=== PATIENT | female | born 1970 | race Caucasian/White ===

== ENCOUNTER 2019-05-07 06:32 | Inpatient (IN) | payer OTHER ==
[2019-05-06 13:09] LABS: BASOPHIL % 0.5 % (0-2); PLATELET COUNT 302 x10^3mcL (130-400); RED CELL DISTRIBUTION WIDTH 13.6 % (11.5-14.5)
[2019-05-06 13:17] LABS: ALBUMIN 3.7 g/dL (3.4-5.0); BILIRUBIN TOTAL 0.4 mg/dL (0.20-1.00); CALCIUM 9.1 mg/dL (8.5-10.1); CARBON DIOXIDE 30.1 mmol/L (21-32); CREATININE SERUM 1.5 mg/dL (0.6-1.0); POTASSIUM SERUM 4.5 mmol/L (3.5-5.1); TOTAL PROTEIN, SERUM 7.7 g/dL (6.4-8.2)
[~2019-05-07] VITALS: Ht 172.7 cm; Wt 111.6 kg
[2019-05-07 06:47] VITALS: BP 100/50
[2019-05-07] MEDS ORDERED: LEVOTHYROXIN0.025 M2 PO (07:13)
[2019-05-07] MEDS ORDERED: SENNA LAX8.6 MG PO (07:13)
[2019-05-07] MEDS ORDERED: MOBIC15 MG PO (07:13)
[2019-05-07] MEDS ORDERED: BENAZEPRIL HYDR40 M1 PO (07:13)
[2019-05-07] MEDS ORDERED: BACLOFEN20 MG PO (07:13)
[2019-05-07] MEDS ORDERED: DITROPAN XL10 MG PO (07:14)
[2019-05-07] MEDS ORDERED: TRAZODONE50 M1 PO (07:14)
--- NOTE | 2019-05-07 12:12 | NUR ---
RECEIVED PATIENT FROM OR NURSE JACOBSON AT THIS TIME. PATIENT RESTING COMFORTABLY IN BED. NO APPARENT DISTRESS OR DISCOMFORT NOTED. A/O X4 AND ABLE TO MAKE NEEDS KNOWN. 2L NC IN PLACE FOR COMFORT. PULSES PALPABLE. NO EDEMA NOTED. PATIENT DENIES SHORTNESS OF BREATH OR CHEST PAIN/PRESSURE. BOWEL SOUNDS ACTIVE X4. PATIENT DENIES ABD PAIN, NAUSEA, AND VOMITING AT THIS TIME. PATIENT HAS A ANN CATHETER IN PLACE DRAINING TO GRAVITY YELLOW URINE. X1 RIGHT HIP INCISION FROM RIGHT HIP REPLACEMENT WITH SUTURES, DERMABOND, AND MEPILEX IN PLACE. PATIENT HAS ERYTHEMA NOTED TO RIGHT SIDE ABD FOLD WITH HYDRAGUARD IN PLACE. PATIENT DENIES PAIN/DISCOMFORT AT THIS TIME. IV TO RAC INFUSING NS @ 80ML/HR. ALL QUESTIONS AND CONCERNS ADDRESSED. ALL NEEDS ATTENDED TO. WILL CONTINUE TO MONITOR
[2019-05-07 12:47] VITALS: BP 101/50
--- NOTE | 2019-05-07 13:45 | NUR ---
PATIENT SITTING UP IN BED EATING LUNCH AT THIS TIME. PATIENT TOLERATING DIET WELL. NO APPARENT DISTRESS OR DISCOMFORT NOTED. PATIENT DENIES PAIN/DISCOMFORT AT THIS TIME. ALL NEEDS ATTENDED TO. WILL CONTINUE TO MONITOR
--- NOTE | 2019-05-07 17:19 | NUR ---
SPOKE TO DR WHITTEN AT THIS TIME REGARDING PATIENT PAIN MEDICINE AT THIS TIME. PATIENT STATES SHE TAKES PERCOCET INSTEAD OF NORCO. PER DR WHITTEN OK TO INPUT TELEPHONE ORDER FOR PERCOCET 5/325 2 TABLETS Q6H PRN. TELEPHONE ORDER READ BACK, CONFIRMED AND FOLLOWED THROUGH
[2019-05-07 17:26] VITALS: BP 108/51
--- NOTE | 2019-05-07 17:37 | NUR ---
PATIENT C/O RIGHT HIP PAIN AT SURGICAL SITE. PATIENT MEDICATED WITH PERCOCET PO. PATIENT TOLERATED WELL. NO APPARENT ADVERSE EFFECTS NOTED. ALL NEEDS ATTENDED TO. WILL CONTINUE TO MONITOR
--- NOTE | 2019-05-07 17:42 | NUR ---
PATIENT STATES SHE TAKES TRAZADONE 100MG AT BED TIME. SPOKE TO DR WHITTEN AT THIS TIME REGARDING HOME MEDICATION. PER DR WHITTEN, OK TO INPUT TELEPHONE ORDER FOR TRAZADONE 100MG HS AT THIS TIME. TELEPHONE ORDER READ BACK, CONFIRMED, AND FOLLOWED THROUGH. ALL NEEDS ATTENDED TO. WILL CONTINUE TO MONITOR
--- NOTE | 2019-05-07 18:16 | NUR ---
PATIENT SITTING UP IN BED EATING DINNER AT THIS TIME. PATIENT TOLERATING DIET WELL. NO APPARENT DISTRESS NOTED. ALL NEEDS ATTENDED TO. WILL CONTINUE TO MONITOR
--- NOTE | 2019-05-07 19:42 | NUR ---
PATIENT RESTING COMFORTABLY IN BED AT THIS TIME. NO APPARENT DISTRESS OR DISCOMFORT NOTED. BREATHING EVEN AND UNLABORED. NO INDICATION OF CHEST PAIN AT THIS TIME. IV PATENT AND INTACT. ANN CATHETER DRAINING TO GRAVITY YELLOW URINE. ALL QUESTIONS AND CONCERNS ADDRESSED. ALL NEEDS ATTENDED TO. WILL CONTINUE TO MONITOR
--- NOTE | 2019-05-07 21:28 | NUR ---
ALL MEDICATIONS ADMINISTERED. PATIENT TOLERATED MEDICATIONS WELL. NO APPARENT ADVERSE EFFECTS NOTED. ALL NEEDS ATTENDED TO. WILL CONTINUE TO MONITOR.
[2019-05-07 21:53] VITALS: BP 82/45
--- NOTE | 2019-05-07 22:49 | NUR ---
PATIENT RESTING COMFORTABLY IN BED AT THIS TIME. NO APPARENT DISTRESS OR DISCOMFORT NOTED. ANN CATHETER IN PLACE DRAINING TO GRAVITY YELLOW URINE. X1 INCISION S/P RIGHT HIP REPLACEMENT WITH SUTURES, DERMABOND, AND MEPILEX IN PLACE. IV PATENT AND INTACT. ALL QUESTIONS AND CONCERNS ADDRESSED. ALL NEEDS ATTENDED TO. SAFETY PRECAUTIONS MAINTAINED. WILL ENDORSE ALL CARE TO ONCOMING NURSE
--- NOTE | 2019-05-07 23:15 | NUR ---
REPORT TAKEN FROM DAY SHIFT NURSE AT THE BEDSIDE, PATIENT RESTING WITH EYES CLOSED AT THIS TIME, CHEST RISE AND FALL OBSERVED, NO DISTRESS NOTED, BREATHING EQUAL AND UNLABORED. WILL CONTINUE TO MONITOR.
[2019-05-08 05:30] VITALS: BP 72/34
--- NOTE | 2019-05-08 05:48 | NUR ---
PATIENT FOUND TO HAVE BP OF 72/34 (48). PATIENT DENIED HEADACHE, DIZZINESS, BLURRY VISION, OR LIGHTHEADEDNESS. I PAGED DR. WHITTEN. I SPOKE TO DR. CHU WHO WAS ARTIFICIAL INSEMINATION TECHNICIAN. HE GAVE TELEPHONE ORDER FRO 500ML BOLUS OF NS, ORDED MOBIC 15 MG PO DAILY, AND ADVISED NOT TO GIVE PAIN MEDICATIONS TILL BMP IS RESULTED FROM THIS MORNING. BOLUS STARTED, WILL CONTINUE TO MONITOR.
[2019-05-08 06:31] VITALS: BP 84/33
[2019-05-08 07:10] LABS: CALCIUM 7.7 mg/dL (8.5-10.1); CREATININE SERUM 1.8 mg/dL (0.6-1.0); POTASSIUM SERUM 5.4 mmol/L (3.5-5.1)
[2019-05-08 07:13] LABS: BASOPHIL % 0.2 % (0-2); PLATELET COUNT 223 x10^3mcL (130-400); RED CELL DISTRIBUTION WIDTH 13.4 % (11.5-14.5)
--- NOTE | 2019-05-08 07:41 | NUR ---
REPORT GIVEN TO DIRECTOR OF MARKETING COMMUNICATIONS NURSE, PATIENT VERBALIZED THAT SHE IS UPSET SHE CANNOT HAVE STRONGER PAIN MEDICATION AT THIS TIME. PATIENT ADVISED THAT DR. CHU ADVISED WE NOT GIVE HER PAIN MEDICATION TILL BP IS HIGHER. PATIENT'S BP IMPROVED AFTER 500ML BOLUS, MAP STILL BELOW 65, CARE ENDORSED TO DAY SHIFT NURSE.
--- NOTE | 2019-05-08 07:46 | NUR ---
RECEIVED PT LYING IN BED, A/A. BREATHING EQUAL/UNLABORED ON 2L/NC. C/O PAIN TO RLE/ BACK. IVF RUNNING AT 80ML/HR. NO REDNESS/SWELLING TO IV SITE. ANN FLOWING TO GRAVITY. S/P R. HIP REPLACEMENT, BANDAGE, CDI. BED IN LOW POSITION, CALL LIGHT IN REACH, SAFETY PRECAUTIONS IN PLACE. WILL CONTINUE TO MONITOR
[2019-05-08 08:45] VITALS: BP 93/48
--- NOTE | 2019-05-08 10:48 | NUR ---
PATIENT C/O PAIN 8/10 AFTER PAIN MED GIVEN. BP STILL LOW 90/40. SPOKE WITH DR. WHITTEN, HE SAID TO GIVE IV DILAUDID AND ENCOURAGE PATIENT TO GET UP FOR PT. WILL CONTINUE TO MONITOR
--- NOTE | 2019-05-08 11:00 | NUR ---
GAVE PT PAIN MED. PT STATES SHE WILL TRY AND GET UP WITH PHYSICAL THERAPY
--- NOTE | 2019-05-08 11:49 | NUR ---
PT LYING IN BED A/A. BREATHING EQUAL/UNLABORED ON RA. NO ACUTE PAIN/ DISTRESS. PT HAD MILD NAUSEA, ZOFRAN GIVEN. IVF RUNNING AT 125ML/HR. NO REDNESS/ SWELLING TO IV SITE. BED IN LOW POSITION, CALL LIGHT IN REACH, SAFETY PRECAUTIONS IN PLACE. WILL CONTINUE TO MONITOR
--- NOTE | 2019-05-08 12:59 | NUR ---
PT C/O PAIN TO RLE. PER DR. WHITTEN CHANGE PERCOCET BACK TO 10/ Q6H AND GIVE IT EARLY.
--- NOTE | 2019-05-08 16:02 | NUR ---
PT LYING IN BED A/A. BREATHING EQUAL/UNLABORED ON RA. NO ACUTE DISTRESS. PT STATES SHE HAS PAIN IN HER RLE. BP IS LOW 89/41. PT STATES SHE IS OKAY WITH NO PAIN MEDS RIGHT NOW. IVF RUNNING. NO REDNESS/ SWELLING TO IV SITE. BED IN LOW POSITION, CALL LIGHT IN REACH, SAFETY PRECAUTIONS IN PLACE. WILL CONTINUE TO MONITOR
[2019-05-08 17:56] VITALS: BP 104/47
--- NOTE | 2019-05-08 18:13 | NUR ---
PT HAS ORDERS TO REMOVE CATHETER. PT STATED SHE DID NOT WANT THE CATHETER REMOVED AT THIS TIME BECAUSE SHE DOES NOT THINK SHE WILL BE ABLE TO GET UP TO GO TO THE BATHROOM. DR. WHITTEN INFORMED
--- NOTE | 2019-05-08 18:19 | NUR ---
PER DR. WHITTEN, CATHETER MUST BE REMOVED BY 6 AM 05/09/19
--- NOTE | 2019-05-08 18:33 | NUR ---
PT LYING IN BED A/A. BREATHING EQUAL/UNLABORED ON RA. NO ACUTE PAIN/DISTRESS. IVF RUNNING AT 125ML/HR. NO REDNESS/SWELLING TO IV SITE. ANN FLOWING TO GRAVITY. PT MADE AWARE THAT ANN IS TO BE REMOVED BY 6AM ON 05/09/19. BED IN LOW POSITION, CALL LIGHT IN REACH, SAFETY PRECAUTIONS IN PLACE. WILL ENDORSE TO NIGHT NURSE
--- NOTE | 2019-05-08 19:30 | NUR ---
PT SEEN, RESTING IN BED, ALERT AND ORIENTED, DENIES HEADACHE OR DIZZINESS, BREATHING EVEN AND UNLABORED, LUNG SOUNDS DIMINISHED, ON ROOM AIR WITH NO RESP DISTRESS OR SOB NOTED, MEDSURG PT, DENIES CHEST PAIN, IVF INFUSING WELL, PULSES PALPABLE, NO EDEMA NOTED, GENERALIZED WEAKNESS, S/P RT HIP REPLACEMENT, INCISION AND DRESSING IN PLACE, ABD SOFT AND OBESE WITH ACTIVE BS, NO BM AT THIS TIME, ANN VIA GRAVITY DRAINING YELLOW URINE, NO DISTRESS NOTED, WILL KEEP TO MONITOR.
[2019-05-08 21:23] VITALS: BP 98/47
--- NOTE | 2019-05-09 06:00 | NUR ---
PT ASLEEP BUT EASILY AROUSABLE, SLEPT MOST OF NIGHT, RT HIP DRESSING C/D/I, ABDUCTOR PILLOW IN PLACE, ANN CATH DC'D, CONDITION NO CHANGE, NO PERCOCET GIVEN THROUGHOUT THE SHIFT, NO DISTRESS NOTED, WILL KEEP TO MONITOR.
[2019-05-09 06:05] VITALS: BP 100/59
[2019-05-09 07:06] LABS: BASOPHIL % 0.3 % (0-2); PLATELET COUNT 204 x10^3mcL (130-400)
[2019-05-09 07:10] LABS: CARBON DIOXIDE 21.8 mmol/L (21-32); CHLORIDE SERUM 108 mmol/L (98-107); CREATININE SERUM 0.9 mg/dL (0.6-1.0); GFR1 > 60 mL/min; GLUCOSE SERUM 97 mg/dL (74-106); POTASSIUM SERUM 4.7 mmol/L (3.5-5.1); SODIUM SERUM 138 mmol/L (136-145)
--- NOTE | 2019-05-09 07:22 | NUR ---
BEDSIDE HANDOFF REPORT GIVEN TO SUPIN-RN, ALL QUESTIONS ANSWERED AND CONCERNS ADDRESSED.
--- NOTE | 2019-05-09 07:25 | NUR ---
RECEIVED A BEDSIDE REPORT. SEEN RESTING WITH EYES CLOSE, EASILY TO AROUSE, STATED HAS NO PAIN AT THIS TIME TO RIGHT HIP. STATED TYLENOL GIVEN EARLIER WAS HELPING WITH PAIN. RIGHT HIP INCISION WITH DRSG NOTED CDI, ABDUCTOR PILLOW INPLACE. IVF NS TO RAC INFUSING WELL AT 125ML/HR. CALL LIGHT PLACED WITHIN EASY REACH, SIDERAILS UP X2.
[2019-05-09 07:58] VITALS: BP 106/58
--- NOTE | 2019-05-09 08:15 | NUR ---
PHYSICAL THERAPIST AT BEDSIDE ATTEMPTED TO ASSIT PATIENT TO GET OUT OF BED. PATIENT ASKED FOR PAIN MEDICATION, REFUSED PO PAIN MEDICATION OFFERED. STATED PAIN IS 8/10 ON PAIN SCALE, DILAUDID 1MG IVP GIVEN AT THIS TIME BEFORE GETTING UP WITH PHYSICAL THERAPIST.
--- NOTE | 2019-05-09 08:30 | NUR ---
SEEN GOT OUT OF BED ASSISTED BY PHYSICAL THERAPIST USING WALKER. STATED ABLE TO WALK TO THE FRONT DOOR AND BACK TO BED. STATED PAIN IS RELIEF AFTER DILAUDID 1MG IVP GIVEN.
--- NOTE | 2019-05-09 09:50 | NUR ---
AM SCHEDULED MEDS GIVEN. STATED PAIN IS TOLERABLE AT THIS TIME. CALL LIGHT PLACED WITHIN EASY REACH, SIDERAILS UP X2.
--- NOTE | 2019-05-09 10:00 | NUR ---
ASSISTED BY 2 ASSISTANCE TO GET OUT FROM BED, PATIENT ABLED TO USE WALKER FROM BED TO THE BATHROOM HERSELF. VOIDED X1 AND ASSISTED BACK TO BED. NO ANY DISTRESS NOTED.
--- NOTE | 2019-05-09 11:33 | NUR ---
RECEIVED A TELEPHONE ORDER FROM DOCTOR WHITTEN, CONDITION UPDATED VIA PHONE. PER DOCTOR WHITTEN, PATIENT ALREADY HAD PHYSICAL THERAPY, PAIN MEDICATION, AND APPOINTMENT SET UP. DISCHARGE HOME ORDER RECEIVED VIA PHONE.
--- NOTE | 2019-05-09 12:30 | NUR ---
ASSISTED TO GET UP AND USED BSC, VOIDED ESMT. 300ML URINE YELLOW IN COLOR. ASSISTED BACK TO BED.
[2019-05-09 13:24] VITALS: BP 106/58
--- NOTE | 2019-05-09 14:35 | NUR ---
PHYSICAL THERAPY DAILY NOTES CO-SIGN All documentation done by the Legal Support Manager for 05/09/19 has been reviewed. I agree with the documentation. Reviewed/Co-Signed by: Beulah Barrios PT Documentation Done by:STACIE ENG PTA
--- NOTE | 2019-05-09 15:20 | NUR ---
DISCHARGE INSTRUCTION GIVEN TO PATIENT AND PATIENT'S DUAGHTER WHO IS AWAKE, ALERT, ORIENTED X4. S/L TO RTAC REMOVED WITH CATHETER INTACT, NO ERYTHEMA OR SWELLING TO SITE, DRSG APPLIED. SURGICAL DRSG TO RIGHT HIP CDI. ASSISTED FROM BED TO WHEELCHAIR AND BROUGHT DOWN TO LOBBY BY RESOURCE NURSE. CONDITION STABLE UPON DISCHARGE.
== END 2019-05-09 15:20 | disposition home or self-care (01) | DRG 301 ==
LOC: MU 06:32 → DU 07:30 → MU 12:20
PROVIDERS: ADMIT Orthopaedic Surgery
PROC: 0SR903Z Replacement of Right Hip Joint with Ceramic Synthetic Substitute, Open Approach (ICD-10-PCS; principal; 2019-05-07 07:30)
DX: M16.11 Unilateral primary osteoarthritis, right hip (principal); I10 Essential (primary) hypertension; Z88.7 Allergy status to serum and vaccine; Z87.891 Personal history of nicotine dependence; Z79.899 Other long term (current) drug therapy
CPT/HCPCS: 97110-GP; 97112-GP; 97116-GP; 97530-GP; C1776; G0378; J0690; J1170; J1885; J2250; J2270; J2274; J2405; J2765; J3490; J7030; J7040

== ENCOUNTER 2019-08-06 07:48 | Inpatient (IN) | payer OTHER ==
[~2019-08-06] VITALS: Ht 175.3 cm; Wt 116.6 kg
[~2019-08-06 07:48] MED LIST: BACLOFEN20 MG PO; BENAZEPRIL HYDR40 M1 PO; DITROPAN XL10 MG PO; LEVOTHYROXIN0.025 M2 PO; MOBIC15 MG PO; SENNA LAX8.6 MG PO; TRAZODONE50 M1 PO
[2019-08-06 08:36] VITALS: BP 99/59
[2019-08-06] MEDS ORDERED: LOTENSIN40 MG PO (08:46)
[2019-08-06] MEDS ORDERED: CYMBALTA20 M1 PO (08:46)
[2019-08-06] MEDS ORDERED: PERCOCET1 TA5 PO (08:47)
[2019-08-06] MEDS ORDERED: VITD PO (08:47)
[2019-08-06] MEDS ORDERED: TIROSINT25 MC1 PO (08:47)
[2019-08-06] MEDS ORDERED: MOBIC15 MG PO (08:48)
[2019-08-06 16:59] VITALS: BP 125/40
[2019-08-06 17:09] VITALS: Ht 175.3 cm; Wt 116.6 kg
[2019-08-06 20:20] VITALS: BP 107/58
[2019-08-07 05:19] VITALS: BP 137/50
[2019-08-07 06:11] LABS: PLATELET COUNT 264 x10^3mcL (130-400); RED CELL DISTRIBUTION WIDTH 13.5 % (11.5-14.5)
[2019-08-07 06:35] LABS: CALCIUM 8.2 mg/dL (8.5-10.1); CARBON DIOXIDE 25.2 mmol/L (21-32); CHLORIDE SERUM 104 mmol/L (98-107); GFR1 > 60 mL/min; GLUCOSE SERUM 154 mg/dL (74-106); POTASSIUM SERUM 5.2 mmol/L (3.5-5.1); SODIUM SERUM 137 mmol/L (136-145)
[2019-08-07 06:53] LABS: BASOPHIL % 0 % (0-2)
[2019-08-07 08:11] VITALS: BP 103/61
[2019-08-07 12:43] VITALS: BP 102/54
[2019-08-07 12:54] VITALS: BP 102/54
== END 2019-08-07 14:16 | disposition home or self-care (01) | DRG 301 ==
LOC: MU 07:48 → DU 10:30 → MU 16:25
PROVIDERS: ADMIT Orthopaedic Surgery
PROC: 0SRB03A Replacement of Left Hip Joint with Ceramic Synthetic Substitute, Uncemented, Open Approach (ICD-10-PCS; principal; 2019-08-06 10:30)
DX: M16.12 Unilateral primary osteoarthritis, left hip (principal); E66.9 Obesity, unspecified; E03.9 Hypothyroidism, unspecified; J45.909 Unspecified asthma, uncomplicated; K21.9 Gastro-esophageal reflux disease without esophagitis; I25.10 Atherosclerotic heart disease of native coronary artery without angina pectoris; G40.909 Epilepsy, unspecified, not intractable, without status epilepticus; M19.90 Unspecified osteoarthritis, unspecified site; F32.9 Major depressive disorder, single episode, unspecified; I12.9 Hypertensive chronic kidney disease with stage 1 through stage 4 chronic kidney disease, or unspecified chronic kidney disease; N18.9 Chronic kidney disease, unspecified; Z68.38 Body mass index [BMI] 38.0-38.9, adult; Z79.899 Other long term (current) drug therapy
CPT/HCPCS: 97116-GP; 97530-GP; G0378; J0690; J1100; J1170; J1885; J2250; J2270; J2405; J3010; J3490; J7030